=== PATIENT | female | born 1970 | race Caucasian/White ===

== ENCOUNTER 2017-05-02 | Emergency (ER) | payer OTHER ==
[~2017-05-02] VITALS: Ht 175.3 cm; Wt 159.2 kg
[2017-05-02 00:03] VITALS: TEMP 36.9; Ht 175.3 cm; Wt 159.2 kg
[2017-05-02] MEDS ORDERED: DOXYCYCLINE HYCLATE 100 MG CAP PO STA (00:39)
[2017-05-02] MEDS ORDERED: DOXY100C PO (00:43)
[2017-05-02 00:53] VITALS: BP 139/79; PULSE 77; O2SAT 96
--- NOTE | 2017-05-02 23:37 | EMERGENCY ROOM VISIT NOTE ---
History First contact with patient: 00:27 Chief Complaint: BITE Stated Complaint: CELLULITIS FROM BITE ON NOSE History of Present Illness The patient is a 46 year old female who presents to the Emergency Room with complaints of pain and swelling to the end of her nose. The patient believes that she may have been bit or stung by an insect. The patient has had worsening symptoms over the past 12 hours, she has not had anything over-the- counter for her symptoms. She rates her discomfort a 5/10. Review of Systems More than 6 systems were reviewed and otherwise negative with the exception of history of present illness. Past Medical/Surgical History No pertinent chronic medical disease Family History No pertinent family history Social History Smoking Status: Former Smoker Current/Historical Medications Scheduled Doxycycline Hyclate (Vibramycin), 100 MG PO BID Physical Exam Vital Signs Date Time Temp Pulse Resp B/P (MAP) Pulse Ox O2 Delivery O2 Flow Rate FiO2 05/02/17 00:53 77 139/79 96 05/02/17 00:03 36.9 95 20 175/90 97 Room Air Physical Exam VITALS: Vitals are noted on the nurse's note and reviewed by myself. Vital signs stable. GENERAL: Well-developed, well-nourished, white female, who is in no acute distress and resting comfortably. Patient is cooperative with the examination. HEAD: Normocephalic atraumatic. EARS: External ear normal. External auditory canals clear, tympanic membranes pearly tyler without erythema or effusion bilaterally. EYES: Pupils equal round and reactive to light and accommodation. Conjunctivae without injection, sclerae without icterus. Extraocular movements intact. NOSE: Patent, turbinates without inflammation or discharge. Along the distal right lateral aspect of the nose is an area of cellulitis measuring approximately 1.0 cm in diameter. This area is tender without obvious abscess MOUTH: Mucous membranes moist. Tonsils are not enlarged. Pharynx without erythema, blood, or exudate. Uvula midline. Airway patent. NECK: Supple without nuchal rigidity. No lymphadenopathy. No thyromegaly. Cervical spine is nontender. HEART: Regular rate and rhythm without murmurs gallops or rubs. LUNGS: Clear to auscultation bilaterally without wheezes, rales or rhonchi. No retractions or accessory muscle use. Medical Decision & Procedures Medications Administered Medications (Trade) Dose Ordered Sig/Karen Route Start Time Stop Time Status Last Admin Dose Admin Doxycycline Hyclate (Vibramycin Cap) 100 mg NOW STAT PO 05/02/17 00:39 05/02/17 00:40 DC 05/02/17 00:51 100 MG ED Course Physical exam and history were performed. Nursing notes, EMR, and Medication List were personally reviewed. Patient appears to have a small area of cellulitis along the distal right aspect of her nose. Evidently the patient has multiple medication allergies but is able to take doxycycline. She was given initial dose here in the department as well as a continuation prescription. I recommended that she follow with her primary care physician in next few days for recheck. She was otherwise invited back to the ER for any new, worsening, or concerning symptoms. The chart was completed utilizing [employer] Voice Recognition Software. Grammatical errors, random word insertions, pronoun errors, and incomplete sentences are an occasional consequence of this system due to software limitations, ambient noise, and hardware issues. Any formal questions or concerns about the content, text, or information contained within the body of this dictation should be directly addressed to the provider for clarification. . Medical Decision Differential diagnosis: Etiologies such as cellulitis, abscess, MRSA infection, DVT, necrotizing fasciitis, dermatitis, drug eruption, as well as others were entertained.. Impression Primary Impression: Cellulitis of nasal tip Departure Information Dispostion Home / Self-Care Condition GOOD Prescriptions Doxycycline Hyclate (VIBRAMYCIN) 100 Mg Cap 100 MG PO BID for 10 Days, #20 CAP Prov: Vicente Lopez PA-C 05/02/17 Forms HOME CARE DOCUMENTATION FORM, IMPORTANT VISIT INFORMATION Patient Instructions My [facility] Additional Instructions You were seen and evaluated today on an emergency basis only. This is not a substitute for, or an effort to provide, complete comprehensive medical care. It is not possible to recognize and treat all injuries or illnesses in a single emergency department visit. For this reason it is recommended that you followup with your primary care physician next week for ongoing care and evaluation. Doxycycline twice a day for 10 days. Avoid exposure to the sun/UV light while on this medication or use frequent application of SPF 50 or higher due to increased sensitivity to UV rays and high risk for severe johnson. You are welcome to return to the emergency department anytime with new, worsening, or concerning symptoms.
== END 2017-05-02 00:54 | disposition home or self-care (01) ==
LOC: C.EDB 00:03 → C.EDC 00:54
DX: J34.0 Abscess, furuncle and carbuncle of nose (principal); Z87.891 Personal history of nicotine dependence